=== PATIENT | female | born 1950 | race Caucasian/White ===

== ENCOUNTER 2018-07-15 21:16 | Emergency (ER) | payer SELFPAY ==
[2018-07-15 21:23] VITALS: BP 152/81; PULSE 73; TEMP 98.2; BMI 27.0
[2018-07-15] MEDS ORDERED: KETOROLAC TROMETHAMINE 60 MG/2 ML VIAL IM ONE (22:06)
[2018-07-15] MEDS ORDERED: KETOROLAC TROMETHAMINE 60 MG/2 ML VIAL ONE (22:08)
--- NOTE | 2018-07-15 22:11 | PDOC ---
History of Present Illness - General Chief Complaint: Injury Stated Complaint: FALL Time Seen by Provider: 07/15/18 22:03 - History of Present Illness Initial Comments: 07/15/18 22:07 67-year-old female without comorbidities presents for evaluation of left-sided rib and chest pain after a fall 7 days ago. She states she now has difficulty breathing getting progressively worse over the last 7 days. She has not taken any medication for this. No radiating pain. She points to the left breast about the superior aspect in the area of ribs 3 and 4 costochondral junction. Past History - Past Medical History Allergies/Adverse Reactions: Allergies Allergy/AdvReac Type Severity Reaction Status Date / Time No Known Allergies Allergy Verified 07/15/18 21:23 Home Medications: Ambulatory Orders No Home Medications 0 dose .ROUTE UTDICT 08/19/13 Ibuprofen [Motrin -] 600 mg PO TID #30 tablet 07/15/18 Spirometers and Accessories [Mistassist] 1 each MC ASDIR #1 each 07/15/18 COPD: No - Surgical History Abdominal Surgery: Yes - Suicide/Smoking/Psychosocial Hx Smoking History: Never smoked Review of Systems - Review of Systems Cardiac (ROS): Yes: See HPI, Chest Pain *Physical Exam - Vital Signs Last Vital Signs Temp Pulse Resp BP Pulse Ox 98.2 F 73 18 152/81 100 07/15/18 21:21 07/15/18 21:21 07/15/18 21:21 07/15/18 21:21 07/15/18 21:21 - Physical Exam Comments: 07/15/18 22:08 HEAD: NC/AT EYES: Conjuntiva clear NOSE: No d/c NECK: Supple without adenopathy CARDIAC: S1 S2 LUNGS: CTA Full and Equal breath sounds, there is tenderness about the area of ribs 3 enforce costochondral junction. ABDOMEN: Soft NT ND MS: Full ROM in all joints without edema NEUROLOGIC: No gross sensory or motor deficits, NVID SKIN: Normal color and temperature no lesions or rashes Moderate Sedation - Procedure Monitoring Vital Signs: Procedure Monitoring Vital Signs Temperature 98.2 F 07/15/18 21:21 Pulse Rate 73 07/15/18 21:21 Respiratory Rate 18 07/15/18 21:21 Blood Pressure 152/81 07/15/18 21:21 O2 Sat by Pulse Oximetry (%) 100 07/15/18 21:21 ED Treatment Course - RADIOLOGY Radiology Studies Ordered: Category Date Time Status CHEST PA & LAT [RAD] Stat Radiology 07/15/18 22:06 Ordered RIBS-LEFT SIDE [RAD] Stat Radiology 07/15/18 22:07 Ordered Medical Decision Making - Medical Decision Making 07/15/18 22:44 Evidence of acute fracture on x-ray no pneumo conceptus spirometry and analgesia follow-up with primary care physician. *DC/Admit/Observation/Transfer Diagnosis at time of Disposition: Costochondral joint sprain - Discharge Dispostion Disposition: HOME Condition at time of disposition: Stable Decision to Admit order: No - Referrals Referrals: Amor Magaña MD [Non Staff, Medical] - Cathi Sanders [Non Staff, Medical] - Jose De Jesus Braga MD [Non Staff, Medical] - Tahmina Mckeon MD [Non Staff, Medical] - Tyree Neal [Non Staff, Medical] - Foster Hobbs [Non Staff, Medical] - Marty Hobbs MD [Non Staff, Medical] - Diana Nicole MD [Staff Physician] - Macario Wyatt MD [Non Staff, Medical] - - Patient Instructions Printed Discharge Instructions: Costochondritis, DI for Costochondritis Additional Instructions: Please take the anti-inflammatory one tablet 3 times a day as needed for pain with food and discontinue the medication if it bothers her stomach. Return to the emergency room should symptoms worsen or go unresolved. Please use the incentive spirometer 10 times an hour as directed. Follow-up with cardiothoracic surgery for further evaluation and treatment options. - Post Discharge Activity
== END 2018-07-15 23:16 | disposition home or self-care (01) ==
LOC: JERFT 21:16
PROC: 3E0233Z Introduction of Anti-inflammatory into Muscle, Percutaneous Approach (ICD-10-PCS; principal; 2018-07-15)
DX: S23.41XA Sprain of ribs, initial encounter (principal); W19.XXXA Unspecified fall, initial encounter; Y93.89 Activity, other specified; Y92.89 Other specified places as the place of occurrence of the external cause; Y99.8 Other external cause status
CPT/HCPCS: 71046-TC-FY; 71101-TC-LT-FY; 99281-25